=== PATIENT | male | born 1970 | race Caucasian/White ===

== ENCOUNTER 2023-08-12 21:17 | Emergency (ER) | payer OTHER ==
[2023-08-12] MEDS ORDERED: TRANDATE 20 MG/4 ML SYRINGE IV ONE ×6 (21:42→23:25)
[2023-08-12 21:50] LABS: Absolute Neutrophil Ct (ANC) 6.74 x10^3/uL (1.4-6.9); BASOPHIL % 0.4 % (0.0-0.4); Basophil (Absolute #) 0.04 x10^3/uL (0-0.4); Eosinophil % 1.6 % (0.00-5.0); Eosinophil (Absolute #) 0.16 x10^3/uL (0-0.5); Hematocrit 43.3 % (42-50); Hemoglobin 15.3 g/dL (12.5-18.0); IMMATURE GRAN # 0.03 x10^3u/L (0.00-0.03); IMMATURE GRAN % 0.3 % (0.00-0.4); Lymphocyte (Absolute #) 2.07 x10^3/uL (1.0-4.6); Lymphocytes % 21.2 % (24.0-44.0); Mean Cell Volume 87.3 fL (78-100); Mean Corpuscular Hemoglobin 30.8 pg (26-32); Mean Corpuscular Hgb Concent. 35.3 g/dL (32-36); Mean Platelet Volume 10.2 fL (7.5-11.0); Monocyte (Absolute #) 0.74 x10^3/uL (0.0-1.3); Monocytes % 7.6 % (0.0-12.0); Neutrophil % 68.9 % (36.0-66.0); Platelet Count 263 x10^3/uL (150-450); Red Blood Count 4.96 x10^6/uL (4.1-5.6); Red Cell Distribution Width 11.3 % (11.5-14.0); White Blood Count 9.8 x10^3/uL (4.0-10.5)
--- NOTE | 2023-08-12 21:51 | ERPHSYRPT ---
- History of Present Illness Time Seen by Provider: 08/12/23 21:30 Source: patient Exam Limitations: no limitations Physician History: This is a 53-year-old white male patient who is diabetic and has hypertension and presents with right-sided weakness that he noticed that came on suddenly approximately 1 to 2 hours ago while cooking at his home. He noticed right-sided weakness that improved but is still present when compared to the left side. Patient takes his blood pressure medicine in the morning. Patient has no chest pain. He is not short of breath. He is not on any anticoagulation therapy. Timing/Duration: today Severity: mild Character of Deficits: new weakness (Moderate right side), altered sensation (Right side upper and lower extremities) Deficits: weak (Right side when ambulating) Baseline/Normal Cognition: alert oriented x 3 Current Cognition: alert oriented x 3 Baseline Gait: walks w/o assistance Associated Symptoms: weakness (Right upper and lower extremities) Allergies/Adverse Reactions: No Known Drug Allergies Allergy (Unverified 08/12/23 21:26) Home Medications: Losartan/Hydrochlorothiazide [Losartan-Hctz 100-12.5 mg Tab] 1 each PO DAILY 08/12/23 [History] Metoprolol Succinate 25 mg Xl* [Toprol-Xl 25MG Tablets] 25 mg PO DAILY 08/12/23 [History] Semaglutide [Ozempic] 0.25 mg SQ WEEKLY 08/12/23 [History] Travel Risk - International Travel Have you traveled outside of the country in past 3 weeks: No - Coronavirus Screening Are you exhibiting any of the following symptoms?: No Close contact with a COVID-19 positive Pt in past 14-21 Days: No - Review of Systems Constitutional: Weakness (Right upper and lower extremities) Eyes: No Symptoms Ears, Nose, & Throat: No Symptoms Respiratory: No Symptoms Cardiac: No Symptoms Abdominal/Gastrointestinal: No Symptoms Genitourinary Symptoms: No Symptoms Musculoskeletal: No Symptoms Neurological: Other (Weakness right upper and lower extremities), No Headache, No Speech Changes Psychological: No Symptoms Endocrine: No Symptoms Hematologic/Lymphatic: No Symptoms Immunological/Allergic: No Symptoms All Other Systems: Reviewed and Negative - Past Medical History Pertinent Past Medical History: Yes - Past Surgical History Past Surgical History: Yes - Nursing Vital Signs Nursing Vital Signs: Initial Vital Signs Temperature 98.3 F 08/12/23 21:18 Pulse Rate 97 H 08/12/23 21:18 Respiratory Rate 22 08/12/23 21:18 Blood Pressure 224/117 08/12/23 21:18 O2 Sat by Pulse Oximetry 96 08/12/23 21:18 Pain Scale Pain Intensity 0 - Carmen Coma Scale Best Eye Response (Carmen): (4) open spontaneously Best Verbal Response (Hodge): (5) oriented Best Motor Response (Carmen): (6) obeys commands Hodge Total: 15 - Physical Exam General Appearance: no apparent distress, alert, anxiety Eye Exam: bilateral eye: normal inspection, PERRL, EOMI Ears, Nose, Throat Exam: normal ENT inspection, moist mucous membranes Neck Exam: normal inspection, non-tender, supple, full range of motion Respiratory: normal breath sounds, lungs clear, airway intact, No chest tenderness, No respiratory distress Cardiovascular: regular rate/rhythm, normal heart sounds, normal peripheral pulses Gastrointestinal: soft, normal bowel sounds, No tenderness Rectal Exam: not done Back Exam: normal inspection, normal range of motion, No CVA tenderness, No vertebral tenderness Extremity Exam: normal inspection, normal range of motion, pelvis stable, parasthesia (Right upper and lower extremity numbness that is improved but still present per his report) Mental Status: alert, oriented x 3, cooperative escrow officer Exam: normal hearing, normal speech, PERRL, abnormal speech (Mild), No facial droop, No tongue midline Motor/Sensory: weak motor strength RUE, weak motor strength RLE, No sensory de ficit Skin Exam: normal color, warm, dry SpO2 Interpretation: normal O2 Delivery: Room Air - Course Nursing assessment & vital signs reviewed: Yes EKG Interpreted by Me: RATE (92), NORMAL AXIS, Left [place] Deviation, NORMAL INTERVALS, NORMAL QRS, Non-specific ST Changes, Other (I do not appreciate acute ischemic changes on today's twelve-lead EKG. I see no ST elevation in the anterior leads.) Ordered Tests: Active Orders 24 hr Category Date Time Status Supervisor Filling And Packing STAT Care 08/12/23 21:41 Active EKG-ER Only STAT Care 08/12/23 21:41 Active IV Insertion STAT Care 08/12/23 21:41 Active NPO (ED) STAT Care 08/12/23 21:41 Active POCT Glucose Check STAT Care 08/12/23 21:41 Active Pulse Oximetry (ED) STAT Care 08/12/23 21:41 Active CHEST 1 VIEW (PORTABLE) Stat Exams 08/12/23 22:[address] ANGIOGRAPHY NECK [CT] Routine Exams 08/13/23 00:08 Ordered CTA HEAD W AND/OR WO CONTRAST [CT] Stat Exams 08/12/23 23:13 Ordered HEAD WITHOUT CONTRAST [CT] Stat Exams 08/12/23 21:18 Taken CBC W DIFF Stat Lab 08/12/23 21:41 Completed CMP Stat Lab 08/12/23 21:45 Completed TROPONIN Q4H Lab 08/12/23 21:45 Completed TROPONIN Q4H Lab 08/13/23 02:15 Received TROPONIN Q4H Lab 08/13/23 05:45 Ordered UA W/RFX UR CULTURE Stat Lab 08/13/23 02:41 Received Medication Summary Generic Name Dose Route Start Last Admin Trade Name Freq PRN Reason Stop Dose Admin Sodium Chloride 1,000 mls @ 100 mls/hr 08/13/23 01:30 08/13/23 01:30 Sodium Chloride 0.9% 1000 Ml IV 09/12/23 01:29 100 mls/hr .Q10H DEONNA Administration Discontinued Medications Generic Name Dose Route Start Last Admin Trade Name Freq PRN Reason Stop Dose Admin Sodium Chloride Confirm 08/13/23 01:17 Sodium Chloride 0.9% 1000 Ml Administered 08/13/23 01:18 Dose 1,000 mls @ ud .ROUTE .STK-MED ONE Labetalol HCl 10 mg 08/12/23 21:42 08/12/23 21:54 Labetalol Hcl 20 Mg/4 Ml Disp.Syringe IV 08/12/23 21:43 10 mg STAT ONE Administration Labetalol HCl Confirm 08/12/23 21:52 Labetalol Hcl 20 Mg/4 Ml Disp.Syringe Administered 08/12/23 21:53 Dose 20 mg IV .STK-MED ONE Labetalol HCl Confirm 08/12/23 22:51 Labetalol Hcl 20 Mg/4 Ml Disp.Syringe Administered 08/12/23 22:52 Dose 20 mg IV .STK-MED ONE Labetalol HCl 10 mg 08/12/23 23:00 08/12/23 22:54 Labetalol Hcl 20 Mg/4 Ml Disp.Syringe IV 08/12/23 23:01 10 mg STAT ONE Administration Labetalol HCl 5 mg 08/12/23 23:14 08/12/23 23:40 Labetalol Hcl 20 Mg/4 Ml Disp.Syringe IV 08/12/23 23:15 10 mg STAT ONE Administration Labetalol HCl 10 mg 08/12/23 23:25 08/12/23 23:25 Labetalol Hcl 20 Mg/4 Ml Disp.Syringe IV 08/12/23 23:26 10 mg STAT ONE Administration Lab/Rad Data: Laboratory Result Diagrams 08/12/23 21:41 08/12/23 21:45 Laboratory Results 08/12/23 08/12/23 08/12/23 Range/Units 21:45 21:45 21:41 WBC 9.8 (4.0-10.5) x10^3/uL RBC 4.96 (4.1-5.6) x10^6/uL Hgb 15.3 (12.5-18.0) g/dL Hct 43.3 (42-50) % MCV 87.3 (78-100) fL MCH 30.8 (26-32) pg MCHC 35.3 (32-36) g/dL RDW 11.3 L (11.5-14.0) % Plt Count 263 (150-450) x10^3/uL MPV 10.2 (7.5-11.0) fL Gran % 68.9 H (36.0-66.0) % Immature Gran % (Auto) 0.3 (0.00-0.4) % Nucleat RBC Rel Count 0.0 (0.00-0.1) % Eos # (Auto) 0.16 (0-0.5) x10^3/uL Immature Gran # (Auto) 0.03 (0.00-0.03) x10^3u/L Absolute Lymphs (auto) 2.07 (1.0-4.6) x10^3/uL Absolute Monos (auto) 0.74 (0.0-1.3) x10^3/uL Absolute Nucleated RBC 0.00 (0.00-0.01) x10^3u/L Lymphocytes % 21.2 L (24.0-44.0) % Monocytes % 7.6 (0.0-12.0) % Eosinophils % 1.6 (0.00-5.0) % Basophils % 0.4 (0.0-0.4) % Absolute Granulocytes 6.74 (1.4-6.9) x10^3/uL Basophils # 0.04 (0-0.4) x10^3/uL Sodium 134 L (137-145) mmol/L Potassium 3.7 (3.5-5.1) mmol/L Chloride 100 (98-107) mmol/L Carbon Dioxide 24 (22-30) mmol/L Anion Gap 12.9 (5-15) MEQ/L BUN 17 (9-20) mg/dL Creatinine 0.84 (0.66-1.25) mg/dL Estimated GFR 104.3 ML/MIN Glucose 320 H (74-106) mg/dL Calcium 8.9 (8.4-10.2) mg/dL Total Bilirubin 0.30 (0.2-1.3) mg/dL AST 29 (17-59) U/L ALT 31 (0-50) U/L Alkaline Phosphatase 66 (38-126) U/L Troponin I < 0.012 (0.000-0.034) ng/mL Serum Total Protein 7.1 (6.3-8.2) g/dL Albumin 4.0 (3.5-5.0) g/dL - Progress Progress: unchanged, improved Progress Note: 08/12/23 21:52 This patient's medical issue is 1 of high complexity. Level complex in the workup performed is based on review of the patient's past medical history, review of the patient's medication list, review of the patient's drug allergy list, history of present illness and physical findings on examination. The workup includes placement of intravenous line, stat CT scan of the head without contrast, twelve-lead EKG, troponin level, CBC, CMP, Accu-Chek stat, urinalysis. Will also provide the patient with 10 mg intravenous labetalol. 08/12/23 22:52 I spoke with teleneurologist Dr. Duffy. He reviewed the CT scan results as well as spoke to the patient and examine him. He wants his systolic blood pressure less than 180. We are to start the tPA dose. He would also like a CTA of the chest performed. I spoke with him at [phone]. 08/12/23 23:50 The chest x-ray was interpreted by me. There is no evidence of any acute cardiopulmonary process. The CT scan of the head without contrast was interpreted by radiologist and I reviewed the impression. There are no comparison films. The CT scan of the head is normal. 08/13/23 01:39 We have lowered his systolic blood pressure in the 140s to 160s range on the labetalol drip. We are awaiting the CTA results of the brain. Clinically, at reexamination, he seems more fidgety and anxious and his speech is more slurred. Almost to aphasia. The family arrived short time ago and offered additional, independent history. The patient never told us that he has had a stroke in the past. The family said he has had a stroke with some residual speech slurring and residual facial drooping. They also stated that he has been very noncompliant since his ex- . The family states that he does not take care of himself. 08/13/23 02:19 CT angiogram of the neck was interpreted by the radiologist and I reviewed the impression. There is atherosclerotic calcification of both internal carotid artery bulbs more significant on the left with no significant stenosis. CT scan of the head without contrast and CT scan of the brain vessels with IV contrast was performed and interpreted by the radiologist. There is a short segment, significant stenosis of M1 segment of the left MCA 90% stenosis, with distal contrast filling. 08/13/23 02:28 08/13/23 02:[address] Jang, the neurologist out of [facility] in [place]. I reviewed the patient history, presenting complaint, workup performed in its results as well as my discussion with our teleneurologist. She recommends continuing the labetalol drip and keeping the systolic blood pressure under 180 but is close to the 170-180 range in order to keep the blood flowing through the MCA stenosis. We are to send the patient to the emergency department at [facility]. They stated at the call center I do not need to contact the emergency department. They will take care and arrange that discussion. Counseled pt/family regarding: lab results, diagnosis, need for follow-up, rad results Medical Desision Making - Independent Historian Additional History obtained from: Family (Family provided additional, independent history. This was beneficial secondary to the patient's worsening confusion.) - Discussion of managment Care discussed with:: specialist (Teleneurologist) - Diagnostic Testing Diagnostic test were ordered, analyzed, and reviewed by me: Yes Radiological Interpretation: Reviewed by me, Teleradiologist Report - Risk of complications The pt has a high risk of morbidity or mortality based on: Decision regarding hospitilization or escalation of hosp level of care - Departure Departure Disposition: Transfer Clinical Impression: CVA (cerebral vascular accident), Left acute arterial ischemic stroke, MCA (mid dle cerebral artery) Condition: Serious Critical Care Time: Yes Critical Care Time(excluding separately billable procedures): Critical 30-74 mins (50 minutes) Referrals: LAURYN ARCHIBALD MD [Primary Care Provider] - Follow up/PCP as directed
[2023-08-12 21:52] VITALS: TEMP 98.3
[2023-08-12 22:05] LABS: ANION GAP 12.9 MEQ/L (5-15); BILIRUBIN,TOTAL 0.3 mg/dL (0.2-1.3); Calcium 8.9 mg/dL (8.4-10.2); Creatinine 1 0.84 mg/dL (0.66-1.25); EST GLOMERULAR FILTRATION RATE 104.3 ML/MIN; Potassium 3.7 mmol/L (3.5-5.1); Total Protein 7.1 g/dL (6.3-8.2)
[2023-08-12] MEDS ORDERED: Activase 100 MG IV ONE (23:05)
[2023-08-13] MEDS ORDERED: Sodium Chloride 0.9% 1000 ML 1,000 ML ONE (01:17)
[2023-08-13] MEDS ORDERED: Sodium Chloride 0.9% 1000 ML 1,000 ML IV SCH (01:30)
[2023-08-13] MEDS ORDERED: TRANDATE 100 MG/20 ML MDV FOR DRIP IV ONE (02:59)
[2023-08-13] MEDS ORDERED: Sodium Chloride 0.9% 150 ML 150 ML IV ONE (02:59)
[2023-08-13 03:21] LABS: Appearance Clear (Clear)
[2023-08-13 03:23] LABS: Ketones Negative (Negative); Leukocyte Esterase Negative (Negative); Nitrite Negative (Negative); Protein,Urine Dip Negative (Negative); Specific Gravity >=1.030 (1.005-1.030); Urobilinogen 0.2 mg/dL (0.2)
[2023-08-13 03:24] LABS: Bilirubin Negative (Negative); Blood Negative (Negative); Glucose, Urine >=1000 mg/dL (Negative)
[2023-08-13 03:30] LABS: Bacteria None Seen /HPF (None Seen); Epithelial Cells None Seen /HPF (None Seen); RBC NONE SEEN /HPF (0-5); WBC NONE SEEN /HPF (0-5)
[2023-08-13 03:31] LABS: ADD URINE CULTURE? NO (NO)
[2023-08-13 05:03] VITALS: BP 153/77; PULSE 75; RESP 32; O2SAT 95
--- NOTE | 2023-08-13 08:42 | XRAY ---
Indication: Right-sided weakness. Multiple contiguous images obtained through the head without contrast. Comparison: None Age-appropriate global atrophy. Left mid centrum semiovale demonstrates 6 mm remote infarct. No acute intracranial hemorrhage, abnormal extra-axial fluid collection, or mass effect. Fourth ventricle is midline without hydrocephalus. Carranza-white matter differentiation preserved. Bony calvarium intact. Visualized paranasal sinuses and mastoid air cells are clear. Impression: Atrophy and subcentimeter remote infarct left centrum semiovale. No acute intracranial abnormalities.
--- NOTE | 2023-08-13 08:44 | XRAY ---
Indication: Weakness. Comparison: None Portable apical lordotic chest underinflated and clear. Heart not enlarged. Bony thorax intact with mild degenerative changes. Impression: Nonacute underinflated chest.
--- NOTE | 2023-08-14 08:14 | XRAY ---
CLINICAL HISTORY:CVA COMPARISON:None. TECHNIQUE:CT of the head without contrast including CT angiography study of the brain vessels with IV contrast was performed and the images were reconstructed in the axial, coronal, and sagittal planes. FINDINGS: Normal intracranial segments of ICAs on both sides. The short segment is noted at the origin of the M1 segment of left MCA about 90% stenosis. Filling of M2 and M3 segments by contrast material is noted. Normal MCA on the right side. Normal ACOM. Normal SARAH in A1, A2, or distal segments. Normal ACTIVITIES ATTENDANT on both sides. No critical stenosis. No aneurysms. IMPRESSION: Short segment significant stenosis of M1 segment of left MCA (90% stenosis) with distal contrast filling. Further evaluation by conventional angiography is advised. Electronically Signed by: Nitza Britt MD. (08/13/2023 02:14:50 EST)
--- NOTE | 2023-08-14 08:14 | XRAY ---
CLINICAL HISTORY:RIGHT SIDED WEAKNESS COMPARISON:None TECHNIQUE:CT angiogram neck was performed after intravenous contrast administration. Reconstructed coronal and sagittal MIP images were also acquired. FINDINGS: Atherosclerotic calcification of both common carotid arteries and carotid artery bulbs with no significant stenosis. The internal carotid arteries are tortuous and patent. Normal course and caliber of the visualized extracranial portions of the internal carotid and vertebral arteries. Normal course and caliber of distal internal carotid arteries and their branches on both sides with no detectable occlusion or significant luminal stenosis. Normal CTA appearance of vertebro-basilar system with no significant stenosis or extrinsic compression noted. No detectable intracranial aneurysms or arteriovenous malformation. IMPRESSION: Atherosclerotic calcification of both internal carotid artery bulbs, is more appreciated on the left side, with no significant stenosis. Electronically Signed by: Nitza Britt MD. (08/13/2023 01:47:02 EST)
== END 2023-08-13 05:03 | disposition short-term general hospital (02) ==
LOC: ED 21:17
DX: I63.512 Cerebral infarction due to unspecified occlusion or stenosis of left middle cerebral artery (principal); G81.91 Hemiplegia, unspecified affecting right dominant side; R47.81 Slurred speech; R53.1 Weakness; R29.706 NIHSS score 6; I10 Essential (primary) hypertension; E11.9 Type 2 diabetes mellitus without complications; Z79.85 Long-term (current) use of injectable non-insulin antidiabetic drugs; Z79.899 Other long term (current) drug therapy
CPT/HCPCS: 36000; 36415; 70450; 70496; 70498; 71045; 80053; 81001; 84484; 85025; 93005; 93041; 94760; 96374; 96376; 99285; 99291; J2997; Q3014

== ENCOUNTER 2024-02-05 20:49 | Emergency (ER) | payer OTHER ==
--- NOTE | 2024-02-05 20:53 | ERPHSYRPT ---
- History of Present Illness Physician History: This is a 53-year-old white male patient who has a feeding tube placed in his abdominal wall and has not been used for 7 months. Patient is able to swallow pills without any difficulty. The family noticed that there was some whitish fluid around the entrance site of the feeding tube on his abdominal wall. Patient has not had a fever. Patient does not have significant pain. Patient has had a CVA in August 2023 now is completely flaccid on the right side and is aphasic. Patient has a history of CVA, hypertension and diabetes. Patient does have an appointment to see his neurologist on February 12, 2024 Timing/Duration: today Quality: burning Severity: mild Location: other (Skin of abdominal wall around the feeding tube site) Associated Symptoms: denies symptoms Allergies/Adverse Reactions: No Known Drug Allergies Allergy (Unverified 08/12/23 21:26) Home Medications: Losartan/Hydrochlorothiazide [Losartan-Hctz 100-12.5 mg Tab] 1 each PO DAILY 08/12/23 [History] Metoprolol Succinate 25 mg Xl* [Toprol-Xl 25MG Tablets] 25 mg PO DAILY 08/12/23 [History] Semaglutide [Ozempic] 0.25 mg SQ WEEKLY 08/12/23 [History] Hx Tetanus, Diphtheria Vaccination/Date Given: Yes Hx Influenza Vaccination/Date Given: No Hx Pneumococcal Vaccination/Date Given: No Travel Risk - International Travel Have you traveled outside of the country in past 3 weeks: No - Emerging Infectious Disease Are you exhibiting symptoms associated with any current EIDs: No - Review of Systems Constitutional: No Symptoms Eyes: No Symptoms Ears, Nose, & Throat: No Symptoms Respiratory: No Symptoms Cardiac: No Symptoms Abdominal/Gastrointestinal: Abdominal Pain (Mild burning at the feeding tube entrance site on his abdominal wall) Genitourinary Symptoms: No Symptoms Musculoskeletal: No Symptoms Skin: Other (Above abdominal wall suction) Neurological: No Symptoms, Paralysis (Chronic, right side) Psychological: No Symptoms Endocrine: No Symptoms Hematologic/Lymphatic: No Symptoms Immunological/Allergic: No Symptoms All Other Systems: Reviewed and Negative - Past Medical History Pertinent Past Medical History: Yes Cardiac History: Hypertension Endocrine Medical History: Diabetes Type II Psycho-Social History: Depression - Past Surgical History Past Surgical History: Yes - Social History Smoking Status: Never smoker Exposure to second hand smoke: No Drug Use: none Patient Lives Alone: No - Nursing Vital Signs Nursing Vital Signs: Initial Vital Signs Temperature 97.7 F 02/05/24 20:58 Pulse Rate 62 02/05/24 20:58 Respiratory Rate 18 02/05/24 20:58 Blood Pressure 138/78 02/05/24 20:58 O2 Sat by Pulse Oximetry 98 02/05/24 20:58 Pain Scale Pain Intensity 4 - Physical Exam General Appearance: no apparent distress, alert Eye Exam: PERRL/EOMI, eyes nml inspection Ears, Nose, Throat Exam: normal ENT inspection, moist mucous membranes Neck Exam: normal inspection, non-tender, supple, full range of motion Respiratory Exam: airway intact, No chest tenderness, No respiratory distress Gastrointestinal/Abdomen Exam: soft, normal bowel sounds, other (Granulation tissue (proud flesh) around the feeding tube site at the entrance into the abdominal wall. Fibrinous exudate present) Rectal Exam: not done Back Exam: normal inspection, normal range of motion, No CVA tenderness, No vertebral tenderness Extremity Exam: normal inspection, normal range of motion, pelvis stable Neurologic Exam: alert, cooperative, normal mood/affect, aphasia (Status post CVA August 2023), other (Patient is status post CVA with right-sided residual paralysis) Skin Exam: other (See above abdomen section) Lymphatic Exam: No adenopathy SpO2 Interpretation: normal O2 Delivery: Room Air - Course Nursing assessment & vital signs reviewed: Yes Ordered Tests: Active Orders 24 hr Category Date Time Status Wound Care STAT Care 02/05/24 21:38 Ordered CULTURE,WOUND Stat Lab 02/05/24 21:38 Ordered - Progress Progress: unchanged Progress Note: 02/05/24 21:44 My medical decision making and the assignment of low complexity to this patient's medical issue today is based on review of the patient's past medical history, review of the patient's medication list, review the patient drug allergy list, history presence and physical findings on examination. The workup in this patient includes culture the site around the feeding tube. Counseled pt/family regarding: diagnosis, need for follow-up Medical Desision Making - Independent Historian Additional History obtained from: Family - Diagnostic Testing Diagnostic test were ordered, analyzed, and reviewed by me: No - Risk of complications The pt has a mod risk of morbidity or mortality based on: Need for prescription drug management - Departure Departure Disposition: Home Clinical Impression: Granulation tissue abnormality Condition: Stable Critical Care Time: No Referrals: LAURYN ARCHIBALD MD [Primary Care Provider] - Follow up/PCP as directed Additional Instructions: Continue cleaning the site as instructed by your neurologist. Keep your appointment with the neurologist scheduled for February 12, 2024. Have a discussion with them regarding removing your feeding tube if they feel it is indicated to do so. Take your antibiotics as prescribed. Prescriptions: Cephalexin Mh 500 mg [Keflex 500 mg] 500 mg PO TID #21 cap
[2024-02-05 21:13] VITALS: RESP 18; TEMP 97.7
[2024-02-05] MEDS ORDERED: KEFLEX 500 MG ONE (21:48)
[2024-02-05] MEDS: KEFLEX 500 MG PO ONE (21:49)
[2024-02-05 22:00] VITALS: BP 146/84; PULSE 83; O2SAT 96
== END 2024-02-05 21:59 | disposition home or self-care (01) ==
LOC: ED 20:49
DX: L92.9 Granulomatous disorder of the skin and subcutaneous tissue, unspecified (principal); Z86.73 Personal history of transient ischemic attack (TIA), and cerebral infarction without residual deficits; G81.91 Hemiplegia, unspecified affecting right dominant side
CPT/HCPCS: 87070; 87077; 87186; 99283; A9270-GY

== ENCOUNTER 2024-02-12 17:25 | Emergency (ER) | payer OTHER ==
--- NOTE | 2024-02-12 17:40 | ERPHSYRPT ---
<POLO BECERRA - Last Filed: 02/12/24 22:22> - History of Present Illness Source: patient Exam Limitations: no limitations Timing/Duration: today Activities at Onset: rest Severity of Dyspnea-Max: moderate Severity of Dyspnea-Current: moderate Possible Cause: chronic episodes Modifying Factors: Improves With: nothing Associated Symptoms: intermittent, chest pain/discomfort, fever, loss of appetite, No cough, No edema, No productive cough Hx Tetanus, Diphtheria Vaccination/Date Given: Yes Hx Influenza Vaccination/Date Given: No Hx Pneumococcal Vaccination/Date Given: No <BILL LONG - Last Filed: 02/12/24 23:42> - History of Present Illness Time Seen by Provider: 02/12/24 17:40 Physician History: The patient, with a history of a recent infection around his feeding tube, presents with loss of appetite, fatigue, altered mental status, and dyspnea. They were previously evaluated for the feeding tube infection, given a dose of antibiotics, and sent home with a prescription for Keflex 500mg TID. A wound culture was obtained at that time. The patient's symptoms have worsened since that visit, prompting his return. They deny chest pain but report abdominal pain localized to the area above the feeding tube. (BILL LONG) Allergies/Adverse Reactions: No Known Drug Allergies Allergy (Unverified 02/12/24 17:27) Home Medications: Losartan/Hydrochlorothiazide [Losartan-Hctz 100-12.5 mg Tab] 1 each PO DAILY 08/12/23 [History] Metoprolol Succinate 25 mg Xl* [Toprol-Xl 25MG Tablets] 25 mg PO DAILY 08/12/23 [History] Amlodipine Besylate 10 mg PO DAILY 02/12/24 [History] Aspirin 81 gm Chew [Baby Aspirin 81 mg Chew] 1 tab PO DAILY 02/12/24 [History] Atorvastatin Calcium 80 mg PO HS 02/12/24 [History] Divalproex Sodium ER 250 mg [Depakote EXTENDED RELEASE 250 MG] 250 mg PO BID 02/12/24 [History] Escitalopram Oxalate [Lexapro] 10 mg PO DAILY 02/12/24 [History] Hydralazine HCl 50 mg PO TID 02/12/24 [History] Insulin Glargine,Hum.rec.anlog [Lantus] 20 units SQ HS 02/12/24 [History] Levetiracetam [Keppra] 1,000 mg PO BID 02/12/24 [History] Omeprazole 40 mg PO DAILY 02/12/24 [History] Travel Risk - Emerging Infectious Disease Are you exhibiting symptoms associated with any current EIDs: No <BILL LOGN - Last Filed: 02/12/24 23:42> - Review of Systems All Other Systems: Reviewed and Negative <BILL LONG - Last Filed: 02/12/24 23:42> - Past Medical History Pertinent Past Medical History: Yes Neurological History: Stroke Cardiac History: Hypertension Endocrine Medical History: Diabetes Type II Musculoskeletal History: No Pertinent History GI Medical History: No Pertinent History History: No Pertinent History Psycho-Social History: Depression Male Reproductive Disorders: No Pertinent History Other Medical History: CVA- August 2023 - Past Surgical History Past Surgical History: Yes Neuro Surgical History: Other Cardiac: No Pertinent History Respiratory: No Pertinent History Gastrointestinal: No Pertinent History Genitourinary: No Pertinent History Musculoskeletal: No Pertinent History Male Surgical History: No Pertinent History Other Surgical History: craniotomy, feeding tube - Social History Smoking Status: Never smoker Exposure to second hand smoke: No Drug Use: none Patient Lives Alone: No - Social Determinants of Health Will the patient participate in the screening: Yes Do you worry about a steady place to live?: No In the past 12 months,have you had to go without utilities?: No Transportation Issues: No Has anyone in your support network made you feel unsafe?: No Have you or anyone in your house had to go without enough: No <BILL LONG - Last Filed: 02/12/24 23:42> - Physical Exam SpO2 Interpretation: normal <POLO BECERRA - Last Filed: 02/12/24 22:22> - Physical Exam General Appearance: no apparent distress Eye Exam: eyes nml inspection Ears, Nose, Throat Exam: hearing grossly normal Neck Exam: normal inspection, supple, full range of motion Respiratory Exam: normal breath sounds, lungs clear, airway intact, No chest tenderness, No respiratory distress Cardiovascular/Chest Exam: normal heart sounds, regular rate/rhythm, No edema Abdominal/Gastrointestinal Exam: soft, tenderness (LUQ, LLQ), other (no erythema or drainage surrounding g tube), No distention, No guarding, No rebound Neurologic Exam: alert, cooperative, motor deficits (right sided residual stroke weakness), confusion, dysarthria (residual) O2 Delivery: Room Air <NICKO LONGEB M. - Last Filed: 02/12/24 23:42> - Nursing Vital Signs Nursing Vital Signs: Initial Vital Signs Temperature 97.2 F 02/12/24 17:27 Pulse Rate 55 L 02/12/24 17:27 Respiratory Rate 18 02/12/24 17:27 Blood Pressure 133/73 02/12/24 17:27 O2 Sat by Pulse Oximetry 99 02/12/24 17:27 Pain Scale Pain Intensity 0 - Course Nursing assessment & vital signs reviewed: Yes EKG Interpreted by Me: RATE (52), Sinus Rhythm, NORMAL AXIS, NORMAL INTERVALS, NORMAL QRS, NORMAL ST-T <BILL LONG M. - Last Filed: 02/12/24 23:42> Ordered Tests: Active Orders 24 hr Category Date Time Status EKG-ER Only STAT Care 02/12/24 17:47 Completed IV Insertion STAT Care 02/12/24 17:47 Completed ABDOMEN AND PELVIS W CONTRAST [CT] Stat Exams 02/12/24 17:48 Completed CHEST 1 VIEW (PORTABLE) Stat Exams 02/12/24 17:47 Completed HEAD WITHOUT CONTRAST [CT] Stat Exams 02/12/24 21:05 Taken BLOOD CULTURE Stat Lab 02/12/24 18:13 Received CBC W DIFF Stat Lab 02/12/24 18:00 Completed CMP Stat Lab 02/12/24 18:00 Completed LIPASE Stat Lab 02/12/24 18:00 Completed Lactic Acid Stat Lab 02/12/24 18:00 Completed TROPONIN Q4H Lab 02/12/24 18:00 Completed TROPONIN Q4H Lab 02/12/24 21:30 Completed UA W/RFX UR CULTURE Stat Lab 02/12/24 21:27 Completed Medication Summary Discontinued Medications Generic Name Dose Route Start Last Admin Trade Name Freq PRN Reason Stop Dose Admin Sodium Chloride 1,000 mls @ 999 mls/hr 02/12/24 17:47 02/12/24 19:44 Sodium Chloride 0.9% 1000 Ml IV 02/12/24 18:47 Infused .Q1H1M STA Infusion Sodium Chloride Confirm 07/05/24 18:40 Sodium Chloride 0.9% 1000 Ml Administered 02/12/24 18:41 Dose 1,000 mls @ ud .ROUTE .STK-MED ONE Morphine Sulfate 2 mg 02/12/24 17:47 02/12/24 18:43 Morphine Sulfate 2 Mg/Ml Inj IV 02/12/24 17:48 2 mg STAT ONE Administration Morphine Sulfate Confirm 02/12/24 18:40 Morphine Sulfate 2 Mg/Ml Inj Administered 02/12/24 18:41 Dose 2 mg .ROUTE .STK-MED ONE Ondansetron HCl 4 mg 02/12/24 17:47 02/12/24 18:43 Ondansetron Hcl 4 Mg/2 Ml Vial IV 02/12/24 17:48 4 mg STAT ONE Administration Ondansetron HCl Confirm 02/12/24 18:40 Ondansetron Hcl 4 Mg/2 Ml Vial Administered 02/12/24 18:41 Dose 4 mg .ROUTE .STK-MED ONE Lab/Rad Data: Laboratory Result Diagrams 02/12/24 18:00 02/12/24 18:00 Laboratory Results 02/12/24 02/12/24 02/12/24 Range/Units 21:30 21:30 21:30 WBC (4.23-9.07) x10^3/uL RBC (4.63-6.08) x10^6/uL Hgb (13.7-17.5) g/dL Hct (40.1-51.0) % MCV (79.0-92.2) fL MCH (25.7-32.2) pg MCHC (32.3-36.5) g/dL RDW (11.6-14.4) % Plt Count (163-337) x10^3/uL MPV (9.4-12.4) fL Gran % (34.0-67.9) % Immature Gran % (Auto) (0.001-0.429) % Nucleat RBC Rel Count (0.00-0.2) % Eos # (Auto) (0.04-0.54) x10^3/uL Immature Gran # (Auto) (0.001-0.031) x10^3u/L Absolute Lymphs (auto) (1.32-3.57) x10^3/uL Absolute Monos (auto) (0.30-0.82) x10^3/uL Absolute Nucleated RBC (0.00-0.012) x10^3u/L Lymphocytes % (21.8-53.1) % Monocytes % (5.3-12.2) % Eosinophils % (0.8-7.0) % Basophils % (0.2-1.2) % Absolute Granulocytes (1.78-5.38) x10^3/uL Basophils # (0.01-0.08) x10^3/uL Sodium (135-145) mmol/L Potassium (3.5-5.1) mmol/L Chloride (98-107) mmol/L Carbon Dioxide (22-30) mmol/L Anion Gap (5-15) MEQ/L BUN (9-20) mg/dL Creatinine (0.66-1.25) mg/dL Estimated GFR ML/MIN Glucose (74-106) mg/dL Lactic Acid (0.4-2.0) Calcium (8.4-10.2) mg/dL Total Bilirubin (0.2-1.3) mg/dL AST (17-59) U/L ALT (0-50) U/L Alkaline Phosphatase (38-126) U/L Ammonia < 9 L (9-30) umol/L Troponin I < 0.012 (0.000-0.033) ng/mL Serum Total Protein (6.3-8.2) g/dL Albumin (3.5-5.0) g/dL Lipase (23-300) U/L Urine Color (Yellow) Urine Appearance (Clear) Urine pH (4.6-8.0) Ur Specific [place] (1.005-1.030) Urine Protein (Negative) Urine Glucose (UA) (Negative) mg/dL Urine Ketones (Negative) Urine Blood (Negative) Urine Nitrite (Negative) Urine Bilirubin (Negative) Urine Urobilinogen (0.2) mg/dL Ur Leukocyte Esterase (Negative) U Hyaline Cast (Auto) (0-2) /LPF Urine Microscopic RBC (0-5) /HPF Urine Microscopic WBC (0-5) /HPF Ur Epithelial Cells (None Seen) /HPF Urine Bacteria (None Seen) /HPF Urine Culture Reflexed (NO) Valproic Acid 35.9 L (50-100) ug/mL 02/12/24 02/12/24 02/12/24 Range/Units 21:27 18:00 18:00 WBC (4.23-9.07) x10^3/uL RBC (4.63-6.08) x10^6/uL Hgb (13.7-17.5) g/dL Hct (40.1-51.0) % MCV (79.0-92.2) fL MCH (25.7-32.2) pg MCHC (32.3-36.5) g/dL RDW (11.6-14.4) % Plt Count (163-337) x10^3/uL MPV (9.4-12.4) fL Gran % (34.0-67.9) % Immature Gran % (Auto) (0.001-0.429) % Nucleat RBC Rel Count (0.00-0.2) % Eos # (Auto) (0.04-0.54) x10^3/uL Immature Gran # (Auto) (0.001-0.031) x10^3u/L Absolute Lymphs (auto) (1.32-3.57) x10^3/uL Absolute Monos (auto) (0.30-0.82) x10^3/uL Absolute Nucleated RBC (0.00-0.012) x10^3u/L Lymphocytes % (21.8-53.1) % Monocytes % (5.3-12.2) % Eosinophils % (0.8-7.0) % Basophils % (0.2-1.2) % Absolute Granulocytes (1.78-5.38) x10^3/uL Basophils # (0.01-0.08) x10^3/uL Sodium 138 (135-145) mmol/L Potassium 3.8 (3.5-5.1) mmol/L Chloride 102 (98-107) mmol/L Carbon Dioxide 31 H (22-30) mmol/L Anion Gap 9.3 (5-15) MEQ/L BUN 12 (9-20) mg/dL Creatinine 0.82 (0.66-1.25) mg/dL Estimated GFR 105.0 ML/MIN Glucose 78 (74-106) mg/dL Lactic Acid (0.4-2.0) Calcium 9.5 (8.4-10.2) mg/dL Total Bilirubin 0.30 (0.2-1.3) mg/dL AST 16 L (17-59) U/L ALT 9 (0-50) U/L Alkaline Phosphatase 68 (38-126) U/L Ammonia (9-30) umol/L Troponin I < 0.012 (0.000-0.033) ng/mL Serum Total Protein 5.8 L (6.3-8.2) g/dL Albumin 3.5 (3.5-5.0) g/dL Lipase 185 (23-300) U/L Urine Color Yellow (Yellow) Urine Appearance Clear (Clear) Urine pH 7.0 (4.6-8.0) Ur Specific [place] 1.020 (1.005-1.030) Urine Protein Negative (Negative) Urine Glucose (UA) Negative (Negative) mg/dL Urine Ketones Negative (Negative) Urine Blood Negative (Negative) Urine Nitrite Negative (Negative) Urine Bilirubin Negative (Negative) Urine Urobilinogen 0.2 (0.2) mg/dL Ur Leukocyte Esterase Negative (Negative) U Hyaline Cast (Auto) NONE SEEN (0-2) /LPF Urine Microscopic RBC 0-2 (0-5) /HPF Urine Microscopic WBC 0-2 (0-5) /HPF Ur Epithelial Cells None Seen (None Seen) /HPF Urine Bacteria None Seen (None Seen) /HPF Urine Culture Reflexed NO (NO) Valproic Acid (50-100) ug/mL 02/12/24 02/12/24 Range/Units 18:00 18:00 WBC 7.2 (4.23-9.07) x10^3/uL RBC 3.96 L (4.63-6.08) x10^6/uL Hgb 11.9 L (13.7-17.5) g/dL Hct 35.6 L (40.1-51.0) % MCV 89.9 (79.0-92.2) fL MCH 30.1 (25.7-32.2) pg MCHC 33.4 (32.3-36.5) g/dL RDW 12.1 (11.6-14.4) % Plt Count 283 (163-337) x10^3/uL MPV 10.1 (9.4-12.4) fL Gran % 65.5 (34.0-67.9) % Immature Gran % (Auto) 0.4 (0.001-0.429) % Nucleat RBC Rel Count 0.0 (0.00-0.2) % Eos # (Auto) 0.15 (0.04-0.54) x10^3/uL Immature Gran # (Auto) 0.03 (0.001-0.031) x10^3u/L Absolute Lymphs (auto) 1.65 (1.32-3.57) x10^3/uL Absolute Monos (auto) 0.63 (0.30-0.82) x10^3/uL Absolute Nucleated RBC 0.00 (0.00-0.012) x10^3u/L Lymphocytes % 22.9 (21.8-53.1) % Monocytes % 8.7 (5.3-12.2) % Eosinophils % 2.1 (0.8-7.0) % Basophils % 0.4 (0.2-1.2) % Absolute Granulocytes 4.73 (1.78-5.38) x10^3/uL Basophils # 0.03 (0.01-0.08) x10^3/uL Sodium (135-145) mmol/L Potassium (3.5-5.1) mmol/L Chloride (98-107) mmol/L Carbon Dioxide (22-30) mmol/L Anion Gap (5-15) MEQ/L BUN (9-20) mg/dL Creatinine (0.66-1.25) mg/dL Estimated GFR ML/MIN Glucose (74-106) mg/dL Lactic Acid 0.7 (0.4-2.0) Calcium (8.4-10.2) mg/dL Total Bilirubin (0.2-1.3) mg/dL AST (17-59) U/L ALT (0-50) U/L Alkaline Phosphatase (38-126) U/L Ammonia (9-30) umol/L Troponin I (0.000-0.033) ng/mL Serum Total Protein (6.3-8.2) g/dL Albumin (3.5-5.0) g/dL Lipase (23-300) U/L Urine Color (Yellow) Urine Appearance (Clear) Urine pH (4.6-8.0) Ur Specific [place] (1.005-1.030) Urine Protein (Negative) Urine Glucose (UA) (Negative) mg/dL Urine Ketones (Negative) Urine Blood (Negative) Urine Nitrite (Negative) Urine Bilirubin (Negative) Urine Urobilinogen (0.2) mg/dL Ur Leukocyte Esterase (Negative) U Hyaline Cast (Auto) (0-2) /LPF Urine Microscopic RBC (0-5) /HPF Urine Microscopic WBC (0-5) /HPF Ur Epithelial Cells (None Seen) /HPF Urine Bacteria (None Seen) /HPF Urine Culture Reflexed (NO) Valproic Acid (50-100) ug/mL - Progress Progress: improved, re-examined Air Movement: good Blood Culture(s) Obtained: No Antibiotics given: No Counseled pt/family regarding: lab results, diagnosis, need for follow-up, rad results <POLO BECERRA - Last Filed: 02/12/24 22:22> - Progress Progress Note: 02/12/24 22:23 I evaluated this patient at the time of my arrival at [address] Long transferred care of this patient to me. Patient was evaluated by Dr. Long, including history and physical exam, prior to my arrival. I have reviewed and interpreted the patient's laboratory data results. Based on the laboratory data results, patient does not have an acute, emergent medical issue. He does have a low Depakote level and this was discussed with the patient and the patient's daughter. The CT scan of the head without contrast was interpreted by the radiologist and I reviewed the impression. The impression states old infarct right occipital lobe. No new or acute findings. 02/12/24 22:24 Patient and the patient's daughter acknowledged that he is feeling better. He wanted something to drink and he tolerated this well. Patient will be discharged to home with instructions to continue all his medications as prescribed. (POLO BECERRA) Medical Desision Making - Independent Historian Additional History obtained from: Family - Diagnostic Testing Diagnostic test were ordered, analyzed, and reviewed by me: Yes Radiological Interpretation: Reviewed by me, Teleradiologist Report <POLO BECERRA - Last Filed: 02/12/24 22:22> - Departure Departure Disposition: Home Critical Care Time: No <POLO BECERRA - Last Filed: 02/12/24 22:22> <BILL LONG - Last Filed: 02/12/24 23:42> - Departure Clinical Impression: Weakness due to old stroke Condition: Stable Referrals: LAURYN ARCHIBALD MD [Primary Care Provider] - Follow up/PCP as directed Instructions: Weakness Additional Instructions: Drink plenty of clear liquids before advancing your diet. Take all your med ications including your antibiotics as prescribed. Call your primary care provider on 02/15/2024, to make arrangements for further evaluation and management and to be evaluated in the next 3 to 5 days. Discuss with your prescribing provider the dosing on the valproic acid. That level was low today.
[2024-02-12 17:45] VITALS: TEMP 97.2
[2024-02-12 18:16] LABS: Absolute Neutrophil Ct (ANC) 4.73 x10^3/uL (1.78-5.38); BASOPHIL % 0.4 % (0.2-1.2); Basophil (Absolute #) 0.03 x10^3/uL (0.01-0.08); Eosinophil % 2.1 % (0.8-7.0); Eosinophil (Absolute #) 0.15 x10^3/uL (0.04-0.54); Hematocrit 35.6 % (40.1-51.0); Hemoglobin 11.9 g/dL (13.7-17.5); IMMATURE GRAN # 0.03 x10^3u/L (0.001-0.031); IMMATURE GRAN % 0.4 % (0.001-0.429); Lymphocyte (Absolute #) 1.65 x10^3/uL (1.32-3.57); Lymphocytes % 22.9 % (21.8-53.1); Mean Cell Volume 89.9 fL (79.0-92.2); Mean Corpuscular Hemoglobin 30.1 pg (25.7-32.2); Mean Corpuscular Hgb Concent. 33.4 g/dL (32.3-36.5); Mean Platelet Volume 10.1 fL (9.4-12.4); Monocyte (Absolute #) 0.63 x10^3/uL (0.30-0.82); Monocytes % 8.7 % (5.3-12.2); Neutrophil % 65.5 % (34.0-67.9); Platelet Count 283 x10^3/uL (163-337); Red Blood Count 3.96 x10^6/uL (4.63-6.08); Red Cell Distribution Width 12.1 % (11.6-14.4); White Blood Count 7.2 x10^3/uL (4.23-9.07)
[2024-02-12 18:26] LABS: ALBUMIN 3.5 g/dL (3.5-5.0); ANION GAP 9.3 MEQ/L (5-15); BILIRUBIN,TOTAL 0.3 mg/dL (0.2-1.3); Calcium 9.5 mg/dL (8.4-10.2); Creatinine 1 0.82 mg/dL (0.66-1.25); Potassium 3.8 mmol/L (3.5-5.1); Total Protein 5.8 g/dL (6.3-8.2)
[2024-02-12] MEDS ORDERED: Sodium Chloride 0.9% 1000 ML 1,000 ML ONE (18:40)
[2024-02-12] MEDS ORDERED: Zofran 4 MG/2 ML VIAL ONE (18:40)
[2024-02-12] MEDS ORDERED: MORPHINE SULFATE 2 MG INJ ONE (18:40)
[2024-02-12] MEDS: MORPHINE SULFATE 2 MG INJ IV ONE (18:43)
[2024-02-12] MEDS: Sodium Chloride 0.9% 1000 ML 1,000 ML IV STA (18:43)
[2024-02-12] MEDS: Zofran 4 MG/2 ML VIAL IV ONE (18:43)
--- NOTE | 2024-02-12 21:02 | XRAY ---
CLINICAL HISTORY: abd pain COMPARISON: None. TECHNIQUE: A contiguous, multislice, post intravenous contrast CT scan of the abdomen and pelvis was performed in the axial plane with multiplanar reconstructions. One of the following dose-reduction techniques was utilized for this exam. Automated exposure control, adjustment of the mA and/or kV accordig to patient size, and use of iterative reconstruction. FINDINGS: Liver is enlarged in size, measuring about 20 cm in craniocaudal axis, showed homogeneous attenuation with no focal mass lesion. No intrahepatic biliary dilatation. Normal-sized portal vein and CBD. Gallbladder showed no definite calculi inside. Pancreas and spleen appear unremarkable. Correctly sited PEG tube in situ. No adrenal mass. Both kidneys appear normal in size, shows normal postcontrast enhancement and excretion. No calculus, mass or hydronephrosis in either kidney. No ascites. No para-aortic lymphadenopathy. Atherosclerotic calcifications of the abdominal aorta and iliac vessels. No significant bowel dilatation. Normal-appearing appendix. Adequately filled urinary bladder, appears free from intraluminal stones, mass or diverticular outpouching. Average sized prostate. Visualized sections of lower chest showed no focal mass or consolidation. Subpleural gravitational dependent groundglass attenuation in both lower lobes. Prominence of bronchovascular markings probably due to pulmonary vascular congestion. No acute osseous abnormality or suspicious bony lesions. Degenerative changes seen in the visualized spine. IMPRESSION: 1. PEG tube noted in situ. 2. No acute abdominopelvic abnormality. 3. Hepatomegaly. Electronically Signed by: Nitza Britt MD. (02/12/2024 20:58:20 EDT)
--- NOTE | 2024-02-12 21:24 | XRAY ---
Indication: Short of breath. Comparison: August 12, 2023 Portable chest remains underinflated and clear. Heart not enlarged. Bony thorax intact again with osteopenia and mild degenerative changes. No new/acute findings.
[2024-02-12 21:51] LABS: Appearance Clear (Clear); Bacteria None Seen /HPF (None Seen); Bilirubin Negative (Negative); Blood Negative (Negative); Epithelial Cells None Seen /HPF (None Seen); Glucose, Urine Negative (Negative); Hyaline Casts NONE SEEN /LPF (0-2); Ketones Negative (Negative); Leukocyte Esterase Negative (Negative); Nitrite Negative (Negative); Protein,Urine Dip Negative (Negative); RBC 0-2 /HPF (0-5); Urobilinogen 0.2 mg/dL (0.2); WBC 0-2 /HPF (0-5)
[2024-02-12 22:02] LABS: ADD URINE CULTURE? NO (NO)
[2024-02-12 22:29] VITALS: O2SAT 95
[2024-02-12 22:31] VITALS: BP 113/64; PULSE 60; RESP 16
--- NOTE | 2024-02-13 07:31 | XRAY ---
Indication: Lethargy. History of stroke and craniotomy. Multiple contiguous axial images obtained through the head without contrast. Comparison: August 12, 2023 New finding very large focus old infarct left parietal and lesser degree left temporal lobes with encephalomalacia. Additional small focus old infarct right occipital lobe. Both lateral ventricles are now prominent. Also interval large left temporoparietal craniectomy. New 3-4 mm midline shifting to the left due to above findings. No acute intracranial hemorrhage. Fourth ventricle is midline. Remaining bony calvarium intact. Visualized paranasal sinuses and mastoid air cells are clear. Impression: New findings including old left temporoparietal infarct with overlying craniectomy and small focus old infarct right occipital lobe. Subsequent negative mass effect with minimal midline shifting and prominent lateral ventricles. No acute intracranial abnormalities.
== END 2024-02-12 22:35 | disposition home or self-care (01) ==
LOC: ED 17:25
DX: I69.351 Hemiplegia and hemiparesis following cerebral infarction affecting right dominant side (principal); R06.00 Dyspnea, unspecified; R53.83 Other fatigue; R41.82 Altered mental status, unspecified; I10 Essential (primary) hypertension; E11.9 Type 2 diabetes mellitus without complications; Z79.4 Long term (current) use of insulin; Z79.899 Other long term (current) drug therapy
CPT/HCPCS: 36000; 36415; 70450; 71045; 74177; 80053; 80164; 81001; 82140; 83605; 83690; 84484; 85025; 87040; 93005; 96374; 96375; 99284; J2270; J2405